=== PATIENT | male | born 1975 | race Hispanic/Latino ===

== ENCOUNTER 2018-10-22 11:29 | Emergency (ER) | payer OTHER ==
[2018-10-22 11:46] VITALS: BP 130/85
--- NOTE | 2018-10-22 12:27 | Emergency Department Report ---
ED Rash HPI - HPI Chief Complaint: Skin Rash Stated Complaint: RASH Time Seen by Provider: 10/22/18 12:01 Duration: 5 Days Location: Lower Extremities Suspected Cause: Insect Rash Symptoms: No Itching, No Facial Swelling, No Tongue/Oral Swelling, No Choking Sensation, No Wheezing/Dyspnea, No Peeling, No Blistering, No Fever, No Lightheaded, No Malaise, No Myalgias Severity: mild Other History: 43 y/o male comes in for being bite by ants on Saturday. Bites on lower extrimities and upper extrimities. Upper extrimities has improved. Patient reports seeing a doctor yesterday. Patient denies any pain or itchingness. ED Review of Systems ROS: Stated complaint: RASH Other details as noted in HPI Comment: All other systems reviewed and negative ED Past Medical Hx - Past Medical History Previous Medical History?: Yes Additional medical history: hernia, scoliosis - Surgical History Past Surgical History?: No - Social History Smoking Status: Current Every Day Smoker Substance Use Type: None Rash Exam - Exam General: Vital signs noted. No distress. Alert and acting appropriately. HEENT: No Periorbital Edema, No Conjuctival Injection, No Chemosis, No Perioral Edema, No Tongue Edema, No Uvular Edema, No Compromised Airway, No Drooling Lungs: Yes Good Air Exchange (Normal Breath Sounds), No Wheezes, No Ronchi, No Stridor, No Cough, No Labored Respirations, No Retractions, No Use of Accessory Muscles, No Other Abnormal Lung Sounds Skin: Yes Excoriations (multiple on lower legs. ), No Weeping, No Tenderness Other: Positive: Abdomen Normal, Neurologic Normal, Musculoskeletal Normal ED Course Vital Signs 10/22/18 11:45 Temperature 98.1 F Pulse Rate 91 H Respiratory 12 Rate Blood Pressure 130/85 [Right] O2 Sat by Pulse 81 L Oximetry Critical care attestation.: If time is entered above; I have spent that time in minutes in the direct care of this critically ill patient, excluding procedure time. ED Disposition Clinical Impression: Rash Disposition: DC-01 TO HOME OR SELFCARE Is pt being admited?: No Does the pt Need Aspirin: No Condition: Stable Instructions: Acute Rash (ED), Insect Bite or Sting (ED) Additional Instructions: Follow up with a blanket winder helper. Try over the counter triple antibiotics daily. Referrals: BRYANNA CESAR MD [Staff Physician] - 3-5 Days
== END 2018-10-22 12:36 | disposition home or self-care (01) ==
LOC: ED 11:29
DX: R21 Rash and other nonspecific skin eruption (principal); F17.200 Nicotine dependence, unspecified, uncomplicated; Z88.1 Allergy status to other antibiotic agents
CPT/HCPCS: 99283

== ENCOUNTER 2018-12-15 13:44 | Emergency (ER) | payer OTHER ==
--- NOTE | 2018-12-15 14:26 | Event Note ---
ED Screening Note ED Screening Note: TESTICULAR PAIN AND SWELLING WORSE THAN NORMAL KNOWN HERNIA This initial assessment/diagnostic orders/clinical plan/treatment(s) is/are subject to change based on patients health status, clinical progression and re- assessment by fellow clinical providers in the ED. Further treatment and workup at subsequent clinical providers discretion. Patient/guardian urged not to elope from the ED as their condition may be serious if not clinically assessed and managed. Initial orders include: US
[2018-12-15 15:36] LABS: Hematocrit 52.8 % (35.5-45.6); Hemoglobin 17.9 gm/dl (11.8-15.2); Mean Corpuscular HGB Conc 34 % (32-34); Mean Corpuscular Volume 93 fl (84-94); Platelet Count 217 K/mm3 (140-440); Red Blood Count 5.65 M/mm3 (3.65-5.03); Red Cell Distribution Width 13.9 % (13.2-15.2)
[2018-12-15 16:00] LABS: Alanine Aminotransferase 13 units/L (7-56); Albumin 3.7 g/dL (3.9-5); BUN/Creatinine Ratio 13; Blood Urea Nitrogen 10 mg/dL (9-20); Hemolysis Index 13
[2018-12-15 17:16] LABS: Bacteria,Urine 1+ /HPF (Negative); Bilirubin,Urine NEG (Negative); Blood,Urine NEG (Negative); Color,Urine Yellow (Yellow); Mucus,Urine FEW /HPF; Protein,Urine <15 mg/dL mg/dL (Negative); Urobilinogen,Urine < 2.0 mg/dL (<2.0)
[2018-12-15 19:23] VITALS: BP 118/81
[2018-12-15] MEDS ORDERED: PERCOCET 5/325 PO STA (22:11)
--- NOTE | 2018-12-16 10:59 | Ultrasound Report ---
Scrotal Ultrasound HISTORY: Patient with acute right scrotal pain. TECHNIQUE: Grayscale and color Doppler imaging performed. COMPARISON: None FINDINGS: The right testicle measures 3.9 x 1.5 x 3.2 cm. The left testicle measures 4.3 x 1.6 x 3.0 cm. There is preserved blood flow bilaterally. Tiny intratesticular calcification is seen on the righ t measuring 3 mm. No calcification identified on the left. There is a trace right-sided hydrocele. On the left, there is a fat-containing hernia and also vascular varicosities. IMPRESSION: 1. Normal testicular blood flow bilaterally with trace right-sided hydrocele which may be reactive. 2. Left-sided fat-containing inguinal hernia, with vascular varicosities which could be related to th e hernia or could be seen with a varicocele. 3. Tiny intratesticular calcification on the right. Signer Name: Alphonse Pan MD Signed: 12/15/2018 3:26 PM Workstation Name: [id number]
== END 2018-12-15 22:39 | disposition home or self-care (01) ==
LOC: ED 13:44
DX: N50.811 Right testicular pain (principal); Z53.21 Procedure and treatment not carried out due to patient leaving prior to being seen by health care provider
CPT/HCPCS: 36415; 80053; 81001; 85027; 93975; 99283